=== PATIENT | female | born 1960 | race Caucasian/White ===

== ENCOUNTER 2017-02-22 15:04 | Emergency (ER) | payer OTHER ==
[~2017-02-22] VITALS: Ht 165.1 cm; Wt 79.4 kg
[~2017-02-22 15:04] MED LIST: ACCUNEB 0.1.25 MG/3 INH; ADVAIR 250/501 EA INH; ALBUTEROL0.09 MG/A2 INH; ALBUTEROL2.5 MG/0.5 INH; DOXYCYCLINE100 M3 PO; DUONEB 3 MG/3 ML3 M1 INH; FLUTICASON0.05 MG/AC NAS; GOOD NEIGHBOR L10 MG PO; HYDROCODONE BIT1 T11 PO; LEVAQUIN500 M2 PO; LEVAQUIN750 M1 PO; LOPRESSOR25 MG PO; MEDROL DOSEPAK4 MG PO; MONTELUKAST SOD10 MG PO; MOTRIN800 MG PO; NAPROSYN500 MG PO; PREDNICOT20 MG PO; PREDNISONE10 MG PO; PREDNISONE20 M1 PO; PREDNISONE50 MG PO; PROAIR HFA0.09 MG/AC IH; PROAIR HFA8.5 GM INH; PROVENTIL0.09 MG/AC IH; ROBITUSSIN AC 110 ML PO; SPIRIVA -- 3018 MCG INH; SPIRIVA RESPIMAT4 G1 INH; SPIRIVA18 MCG IH; SYMBICORT1 AE1 INH; TAMIFLU 75MG CA75 MG PO; VENTOLIN H0.09 MG/AC INH; VIBRAMYCIN100 MG PO; Ventolin 02.5 MG/3 M INH; ZITHROMAX Z PA250 MG PO; ZITHROMAX250 MG PO
[2017-02-22] MEDS ORDERED: AMOXICILLIN500 M2 PO (15:11)
[2017-02-22 15:25] VITALS: BP 157/77
[2017-02-22 15:44] LABS: HEMATOCRIT 43.9 % (37.0-47.0); HEMOGLOBIN 14.4 g/dl (12.0-16.0); MEAN CELL VOLUME 91.1 fl (81.0-99.0); MEAN CORPUSCULAR HGB 29.9 pg (27.0-31.0); MEAN CORPUSCULAR HGB CONC 32.8 g/dl (33.0-37.0); MEAN PLATELET VOLUME 9.8 fl (9.6-12.3); PLATELET COUNT AUTOMATED 410 10*3/uL (130-400); RED BLOOD COUNT 4.82 10*6/uL (4.10-5.10); RED CELL DISTRI WIDTH 13.2 % (0-14.5); WHITE BLOOD COUNT 11.4 10*3/uL (4.8-10.8)
[2017-02-22 15:58] LABS: ALBUMIN 3.6 gm/dl (3.1-4.5); ALKALINE PHOSPHATASE 69 U/L (45-117); BILIRUBIN, TOTAL 0.3 mg/dl (0.2-1.0); BUN 7 mg/dl (7-24); CARBON DIOXIDE 25 mmol/L (21-32); CHLORIDE 106 mmol/L (98-107); EST GLOM FILT AFRICAN AMERICAN > 60 ml/min; GLUCOSE 87 mg/dL (65-99); POTASSIUM 3.7 mmol/L (3.5-5.1); SGOT/AST 16 IU/L (3-35); SGPT/ALT 13 U/L (12-78); SODIUM 144 mmol/L (136-145); TOTAL PROTEIN 7.7 gm/dL (6.4-8.2)
[2017-02-22 16:12] LABS: BASOPHIL # 0.1 10*3/uL (0-0.1); BASOPHILS 1 % (0-1); EOSINOPHIL # 2.5 10*3/uL (0-0.4); EOSINOPHILS 22 % (1-4); LYMPHOCYTE # 2.9 10*3/uL (1.3-4.4); MONOCYTE # 0.8 10*3/uL (0.1-1.0); NEUTROPHIL # 5.1 10*3/uL (2.3-7.9); NEUTROPHILS 45 % (47-73); TOTAL CELLS COUNTED 100 #CELLS
[2017-02-22 16:13] LABS: PLATELET SUFFICIENCY HIGH (NORMAL)
[2017-02-22] MEDS ORDERED: PREDNISONE10 MG PO (16:18)
== END 2017-02-22 16:44 | disposition home or self-care (01) ==
LOC: ED 15:04
PROVIDERS: Nurse Practitioner Family
DX: J45.901 Unspecified asthma with (acute) exacerbation (principal); R03.0 Elevated blood-pressure reading, without diagnosis of hypertension; Z88.1 Allergy status to other antibiotic agents; Z88.2 Allergy status to sulfonamides; Z79.899 Other long term (current) drug therapy

== ENCOUNTER 2017-03-16 14:05 | Emergency (ER) | payer OTHER ==
[~2017-03-16] VITALS: Wt 81.6 kg
[~2017-03-16 14:05] MED LIST changes: +AMOXICILLIN500 M2 PO
[2017-03-16 14:10] VITALS: BP 127/85
[2017-03-16] MEDS ORDERED: PREDNISONE10 MG PO (16:30)
== END 2017-03-16 16:40 | disposition home or self-care (01) ==
LOC: ED 14:05
DX: J45.901 Unspecified asthma with (acute) exacerbation (principal); R03.0 Elevated blood-pressure reading, without diagnosis of hypertension; Z88.1 Allergy status to other antibiotic agents; Z88.2 Allergy status to sulfonamides; Z79.899 Other long term (current) drug therapy

== ENCOUNTER 2018-01-04 10:26 | Inpatient (IN) | payer OTHER ==
[~2018-01-04] VITALS: Ht 165.1 cm; Wt 81.9 kg
[2018-01-04] VITALS (9 sets, daily range): BP systolic 115–155; BP diastolic 55–78
[2018-01-04 11:01] LABS: BASO # 0.1 10*3/uL (0.0-0.1); BASO % 0.9 % (0.0-1.0); EOS # 0.2 10*3/uL (0.0-0.4); EOS % 1.6 % (1.0-4.0); HEMATOCRIT 44.8 % (37.0-47.0); LYMPH # 1.1 10*3/uL (1.3-4.4); LYMPH % 11.6 % (27.0-41.0); MEAN CELL VOLUME 89.2 fl (81.0-99.0); MEAN CORPUSCULAR HGB 29.9 pg (27.0-31.0); MEAN CORPUSCULAR HGB CONC 33.5 g/dl (33.0-37.0); MEAN PLATELET VOLUME 9.3 fl (9.6-12.3); MONO # 0.8 10*3/uL (0.1-1.0); MONO % 8.7 % (3.0-9.0); NEUT # 7.3 10*3/uL (2.3-7.9); NEUT % 76.9 % (47.0-73.0); PLATELET COUNT AUTOMATED 347 10*3/uL (130-400); RED BLOOD COUNT 5.02 10*6/uL (4.10-5.10); RED CELL DISTRI WIDTH 13.5 % (0-14.5); WHITE BLOOD COUNT 9.5 10*3/uL (4.8-10.8)
[2018-01-04 11:10] LABS: ACT PARTIAL THROMBO TIME 27.3 SECONDS (20.8-31.5)
[2018-01-04 11:17] LABS: ALBUMIN 3.6 gm/dl (3.1-4.5); ALKALINE PHOSPHATASE 87 U/L (45-117); BUN 7 mg/dl (7-24); CHLORIDE 105 mmol/L (98-107); CREATININE 0.68 mg/dL (0.55-1.02); POTASSIUM 3.3 mmol/L (3.5-5.1); SGOT/AST 23 IU/L (3-35); SGPT/ALT 30 U/L (12-78); SODIUM 135 mmol/L (136-145)
[2018-01-04 11:27] LABS: TROPONIN I < 0.015 ng/ml (<0.045)
[2018-01-04] MEDS ORDERED: BREO ELLIPTA 21 EACH INH (12:18)
[2018-01-04] MEDS ORDERED: PROAIR HFA8.5 GM INH (14:05)
[2018-01-05] VITALS: BP 143/77
[2018-01-05 08:00] VITALS: BP 130/69
[2018-01-05 08:03] LABS: BASO % 0.2 % (0.0-1.0); HEMATOCRIT 42.4 % (37.0-47.0); HEMOGLOBIN 13.9 g/dl (12.0-16.0); LYMPH # 1.3 10*3/uL (1.3-4.4); LYMPH % 19.4 % (27.0-41.0); MEAN CORPUSCULAR HGB 29.8 pg (27.0-31.0); MEAN CORPUSCULAR HGB CONC 32.8 g/dl (33.0-37.0); MEAN PLATELET VOLUME 9.8 fl (9.6-12.3); MONO # 0.7 10*3/uL (0.1-1.0); MONO % 10.8 % (3.0-9.0); NEUT # 4.5 10*3/uL (2.3-7.9); NEUT % 68.7 % (47.0-73.0); PLATELET COUNT AUTOMATED 394 10*3/uL (130-400); RED BLOOD COUNT 4.66 10*6/uL (4.10-5.10); RED CELL DISTRI WIDTH 13.9 % (0-14.5); WHITE BLOOD COUNT 6.5 10*3/uL (4.8-10.8)
[2018-01-05 08:33] LABS: BUN 8 mg/dl (7-24); CHLORIDE 108 mmol/L (98-107); CHOLESTEROL 170 mg/dL (<200); FREE T4 0.98 ng/dl (0.76-1.46); HDL CHOLESTEROL 59 mg/dl (40-60); LDL CHOLESTEROL 97 mg/dL (9-159); PHOSPHOROUS 3.1 mg/dL (2.5-4.9); POTASSIUM 3.7 mmol/L (3.5-5.1); SODIUM 139 mmol/L (136-145); TRIGLYCERIDES 68 mg/dl (<150); VLDL CHOLESTEROL 14 mg/dL (6-40)
[2018-01-05 08:40] LABS: THYROID STIM HORMONE (HS) 0.949 uIU/ml (0.358-4.75)
[2018-01-05 09:03] LABS: VITAMIN D, 25-HYDROXY 14.4 ng/mL (30-100)
[2018-01-05 12:00] VITALS: BP 120/63
[2018-01-05 16:00] VITALS: BP 122/70
[2018-01-05 20:00] VITALS: BP 126/67
[2018-01-06] VITALS: BP 145/81
[2018-01-06 06:36] LABS: BUN 12 mg/dl (7-24); CHLORIDE 104 mmol/L (98-107); CREATININE 0.65 mg/dL (0.55-1.02); SODIUM 138 mmol/L (136-145)
[2018-01-06 06:42] LABS: BASO % 0.1 % (0.0-1.0); HEMATOCRIT 43.3 % (37.0-47.0); HEMOGLOBIN 13.9 g/dl (12.0-16.0); LYMPH # 1.5 10*3/uL (1.3-4.4); LYMPH % 13.5 % (27.0-41.0); MEAN CELL VOLUME 92.5 fl (81.0-99.0); MEAN CORPUSCULAR HGB 29.7 pg (27.0-31.0); MEAN CORPUSCULAR HGB CONC 32.1 g/dl (33.0-37.0); MEAN PLATELET VOLUME 10.1 fl (9.6-12.3); MONO # 0.5 10*3/uL (0.1-1.0); MONO % 4.3 % (3.0-9.0); NEUT # 9.2 10*3/uL (2.3-7.9); NEUT % 81.4 % (47.0-73.0); PLATELET COUNT AUTOMATED 426 10*3/uL (130-400); RED BLOOD COUNT 4.68 10*6/uL (4.10-5.10); RED CELL DISTRI WIDTH 14.1 % (0-14.5); WHITE BLOOD COUNT 11.3 10*3/uL (4.8-10.8)
[2018-01-06 07:00] LABS: POTASSIUM 4.9 mmol/L (3.5-5.1)
[2018-01-06 08:00] VITALS: BP 131/72
[2018-01-06 12:00] VITALS: BP 129/77
[2018-01-06] MEDS ORDERED: LEVAQUIN750 M1 PO (15:02)
[2018-01-06] MEDS ORDERED: Solu-Medrol IV (15:02)
[2018-01-06] MEDS ORDERED: PREDNISONE10 MG PO (15:02)
[2018-01-06] MEDS ORDERED: MUCINEX ER600 MG PO (15:02)
== END 2018-01-06 16:24 | disposition home or self-care (01) | DRG 871 ==
LOC: ED 10:26 → EDHOLD 12:13 → 5E 12:13
PROVIDERS: Family Medicine; Internal Medicine; Student in an Organized Health Care Education/Training Program
DX: A41.9 Sepsis, unspecified organism (principal); J18.1 Lobar pneumonia, unspecified organism; E87.1 Hypo-osmolality and hyponatremia; J45.909 Unspecified asthma, uncomplicated; R07.81 Pleurodynia; D72.810 Lymphocytopenia; K08.409 Partial loss of teeth, unspecified cause, unspecified class; E87.6 Hypokalemia; Z79.899 Other long term (current) drug therapy; Z82.5 Family history of asthma and other chronic lower respiratory diseases; Z82.1 Family history of blindness and visual loss; Z82.2 Family history of deafness and hearing loss; Z88.1 Allergy status to other antibiotic agents; Z88.2 Allergy status to sulfonamides; Z88.8 Allergy status to other drugs, medicaments and biological substances

== ENCOUNTER 2020-02-20 07:48 | Emergency (ER) | payer OTHER ==
[~2020-02-20] VITALS: Ht 165.1 cm; Wt 73.9 kg
[~2020-02-20 07:48] MED LIST changes: +BREO ELLIPTA 21 EACH INH; +MUCINEX ER600 MG PO; +Solu-Medrol IV
[2020-02-20 07:51] VITALS: BP 151/70
[2020-02-20] MEDS ORDERED: TYLENOL325 M1 PO (08:09)
[2020-02-20] MEDS ORDERED: NAPROSYN500 MG PO (08:09)
[2020-02-20] MEDS ORDERED: CLINDAMYCIN HC300 MG PO (08:09)
== END 2020-02-20 08:40 | disposition home or self-care (01) ==
LOC: ED 07:48
DX: K08.89 Other specified disorders of teeth and supporting structures (principal); J45.909 Unspecified asthma, uncomplicated; Z88.8 Allergy status to other drugs, medicaments and biological substances; Z88.2 Allergy status to sulfonamides; Z79.899 Other long term (current) drug therapy

== ENCOUNTER 2020-03-03 03:22 | Emergency (ER) | payer OTHER ==
[~2020-03-03 03:22] MED LIST changes: +CLINDAMYCIN HC300 MG PO; +TYLENOL325 M1 PO
[2020-03-03 03:25] VITALS: BP 140/76
[2020-03-03] MEDS ORDERED: PEPCID20 MG PO (03:38)
[2020-03-03] MEDS ORDERED: PREDNISONE20 M1 PO (03:38)
== END 2020-03-03 04:00 | disposition home or self-care (01) ==
LOC: ED 03:22
DX: L50.0 Allergic urticaria (principal); Z88.1 Allergy status to other antibiotic agents; Z88.2 Allergy status to sulfonamides; Z79.899 Other long term (current) drug therapy

== ENCOUNTER 2020-12-31 15:40 | Emergency (ER) | payer OTHER ==
[~2020-12-31] VITALS: Ht 167.6 cm; Wt 68.0 kg
[~2020-12-31 15:40] MED LIST changes: +PEPCID20 MG PO
[2020-12-31 15:47] VITALS: BP 153/73
[2020-12-31] MEDS ORDERED: MEDROL DOSEPAK4 MG PO (17:08)
[2020-12-31] MEDS ORDERED: ZITHROMAX250 MG PO (17:08)
== END 2020-12-31 17:51 | disposition home or self-care (01) ==
LOC: ED 15:40
DX: J45.901 Unspecified asthma with (acute) exacerbation (principal); Z79.899 Other long term (current) drug therapy; Z88.1 Allergy status to other antibiotic agents; Z88.2 Allergy status to sulfonamides

== ENCOUNTER 2021-02-21 17:27 | Emergency (ER) | payer OTHER ==
[~2021-02-21] VITALS: Ht 165.1 cm; Wt 70.3 kg
[2021-02-21 18:12] LABS: BASO # 0.1 10*3/uL (0.0-0.1); BASO % 0.9 % (0.0-1.0); EOS # 1.4 10*3/uL (0.0-0.4); HEMATOCRIT 43.7 % (37.0-47.0); LYMPH % 23.9 % (27.0-41.0); MEAN CELL VOLUME 93.4 fl (81.0-99.0); MEAN CORPUSCULAR HGB 29.7 pg (27.0-31.0); MEAN CORPUSCULAR HGB CONC 31.8 g/dl (33.0-37.0); MEAN PLATELET VOLUME 9.4 fl (9.6-12.3); MONO # 0.6 10*3/uL (0.1-1.0); MONO % 5.2 % (3.0-9.0); NEUT # 7.2 10*3/uL (2.3-7.9); NEUT % 58.6 % (47.0-73.0); PLATELET COUNT AUTOMATED 402 10*3/uL (130-400); RED BLOOD COUNT 4.68 10*6/uL (4.10-5.10); RED CELL DISTRI WIDTH 13.9 % (0-14.5); WHITE BLOOD COUNT 12.3 10*3/uL (4.8-10.8)
[2021-02-21 18:31] LABS: ALBUMIN 3.1 gm/dl (3.1-4.5); ALKALINE PHOSPHATASE 77 U/L (45-117); BUN 12 mg/dl (7-24); CHLORIDE 106 mmol/L (98-107); CREATININE 0.71 mg/dL (0.55-1.02); POTASSIUM 3.7 mmol/L (3.5-5.1); SGOT/AST 8 IU/L (3-35); SGPT/ALT 14 U/L (12-78); SODIUM 139 mmol/L (136-145); TOTAL PROTEIN 7.5 gm/dL (6.4-8.2)
[2021-02-21 18:35] LABS: TROPONIN I < 0.015 ng/ml (<0.045)
[2021-02-21] MEDS ORDERED: PREDNISONE50 MG PO (18:57)
== END 2021-02-21 18:57 | disposition home or self-care (01) ==
LOC: ED 17:27
PROVIDERS: Emergency Medicine
DX: J45.901 Unspecified asthma with (acute) exacerbation (principal); Z79.899 Other long term (current) drug therapy; Z88.2 Allergy status to sulfonamides; Z88.8 Allergy status to other drugs, medicaments and biological substances

== ENCOUNTER 2021-05-26 14:23 | Emergency (ER) | payer OTHER ==
[~2021-05-26] VITALS: Ht 165.1 cm; Wt 70.3 kg
[2021-05-26 14:43] VITALS: BP 148/62
== END 2021-05-26 18:33 | disposition left against medical advice (07) ==
LOC: ED 14:23
DX: R10.30 Lower abdominal pain, unspecified (principal); Z53.21 Procedure and treatment not carried out due to patient leaving prior to being seen by health care provider

== ENCOUNTER 2025-06-10 08:47 | Emergency (ER) | payer SELFPAY ==
[~2025-06-10] VITALS: Ht 167.6 cm; Wt 72.6 kg
[2025-06-10 08:58] VITALS: BP 148/70
[2025-06-10] MEDS ORDERED: Albuterol Sulf/Ipratropium 3 ML VIAL NEB ONE (09:50)
[2025-06-10] MEDS ORDERED: INHAL AID 1 KIT DEVICE DEVI ONE (11:35)
[2025-06-10] MEDS ORDERED: VENT7GM INH (11:38)
[2025-06-10] MEDS ORDERED: PREDNISONE20 M1 PO (11:38)
[2025-06-10] MEDS ORDERED: ALBUTEROL2.5 MG/0.5 INH (11:38)
[2025-06-10] MEDS ORDERED: Water, Sterile 10 ML VIAL ONE (12:00)
== END 2025-06-10 11:49 | disposition home or self-care (01) ==
LOC: ED 08:47
DX: J45.901 Unspecified asthma with (acute) exacerbation (principal); Z98.890 Other specified postprocedural states; Z88.1 Allergy status to other antibiotic agents; Z88.2 Allergy status to sulfonamides; Z88.8 Allergy status to other drugs, medicaments and biological substances

== ENCOUNTER 2025-07-18 10:45 | Emergency (ER) | payer MEDICARE ==
[~2025-07-18] VITALS: Ht 165.1 cm; Wt 71.7 kg
[~2025-07-18 10:45] MED LIST changes: +VENT7GM INH
[2025-07-18 10:56] VITALS: BP 148/79
[2025-07-18] MEDS ORDERED: Albuterol Sulf/Ipratropium 3 ML VIAL NEB ONE (11:15)
[2025-07-18 11:26] LABS: BASO # 0.1 10*3/uL (0.0-0.1); BASO % 1.1 % (0.0-1.0); EOS # 1.1 10*3/uL (0.0-0.4); EOS % 9.5 % (1.0-4.0); MEAN CELL VOLUME 91.2 fl (81.0-99.0); MEAN CORPUSCULAR HGB 29.7 pg (27.0-31.0); MEAN PLATELET VOLUME 9.2 fl (9.6-12.3); MONO # 0.8 10*3/uL (0.1-1.0); MONO % 6.8 % (3.0-9.0); NEUT # 7.8 10*3/uL (2.3-7.9); NEUT % 64.6 % (47.0-73.0); NUCLEATED RED BLOOD CELL 0.0 % (0.0-0.0); NUCLEATED RED BLOOD CELL 0.0 10*3/uL (0.0-0.0); PLATELET COUNT AUTOMATED 531 10*3/uL (130-400); RED CELL DISTRI WIDTH 14.2 % (0-14.5)
[2025-07-18 11:49] LABS: BUN 9 mg/dl (9-23)
[2025-07-18] MEDS ORDERED: Ipratropium Brom3 ML INH (13:04)
[2025-07-18] MEDS ORDERED: PREDNISONE20 M1 PO (13:04)
== END 2025-07-18 13:10 | disposition home or self-care (01) ==
LOC: ED 10:45
PROVIDERS: Emergency Medicine
DX: J45.901 Unspecified asthma with (acute) exacerbation (principal); Z20.822 Contact with and (suspected) exposure to COVID-19; Z88.2 Allergy status to sulfonamides; Z88.1 Allergy status to other antibiotic agents; Z88.8 Allergy status to other drugs, medicaments and biological substances